=== PATIENT | female | born 1965 | race Caucasian/White ===

== ENCOUNTER 2023-02-14 17:49 | Emergency (ER) | payer SELFPAY ==
[~2023-02-14] VITALS: Ht 167.6 cm; Wt 95.0 kg
[2023-02-14] MEDS ORDERED: VOLTAREN - GENE75 MG PO (22:31)
[2023-02-14] MEDS ORDERED: TRAMADOL HCL50 MG PO (22:32)
[2023-02-14 23:25] VITALS: BP 124/77
[2023-02-14] MEDS ORDERED: BUSPAR5 M1 PO (23:30)
[2023-02-14] MEDS ORDERED: PROTONIX20 MG PO (23:30)
[2023-02-14] MEDS ORDERED: FLUOXETINE HCL10 MG PO (23:30)
== END 2023-02-14 23:25 | disposition home or self-care (01) | DRG 563 ==
LOC: ED 17:49
DX: S63.502A Unspecified sprain of left wrist, initial encounter (principal); S00.212A Abrasion of left eyelid and periocular area, initial encounter; S00.81XA Abrasion of other part of head, initial encounter; S70.02XA Contusion of left hip, initial encounter; S20.212A Contusion of left front wall of thorax, initial encounter; S50.12XA Contusion of left forearm, initial encounter; S60.212A Contusion of left wrist, initial encounter; F17.210 Nicotine dependence, cigarettes, uncomplicated; W10.9XXA Fall (on) (from) unspecified stairs and steps, initial encounter; Y92.009 Unspecified place in unspecified non-institutional (private) residence as the place of occurrence of the external cause

== ENCOUNTER 2024-09-21 20:16 | Emergency (ER) | payer OTHER ==
[~2024-09-21] VITALS: Ht 167.6 cm; Wt 80.0 kg
[~2024-09-21 20:16] MED LIST: BUSPAR5 M1 PO; FLUOXETINE HCL10 MG PO; PROTONIX20 MG PO; TRAMADOL HCL50 MG PO; VOLTAREN - GENE75 MG PO
[2024-09-21] MEDS ORDERED: KETOROLAC TROMETHAMINE 30 MG/ML SDV IV ONE (20:50)
[2024-09-21] MEDS ORDERED: NITROGLYCERIN 2% OINT UD 1 GM/PAK TD ONE (20:50)
[2024-09-21] MEDS ORDERED: Acetaminophen 300 MG/Codeine 30 MG/COMBO PO ONE (21:00)
[2024-09-21 21:16] VITALS: BP 114/55
[2024-09-21 21:17] LABS: BASO% 0.4 % (0-3); EOS% 2.7 % (0-8); HEMATOCRIT 39.1 % (37.0-47.0); HEMOGLOBIN 12.8 g/dl (12.0-16.0); IMMATURE GRANULOCYTES 0.3 % (0.0-5.0); LYMPH% 31.1 % (15-41); MEAN CELL VOLUME 87.5 fL CALC (80.0-100.0); MEAN CORPUSCULAR HGB 28.6 pG CALC (26.0-32.0); MEAN CORPUSCULAR HGB CONC 32.7 g/dL CAL (32.0-36.0); MONO% 6.9 % (2-13); NEUT# 6.12 thou/uL (2.00-7.15); NEUT% 58.6 % (42-76); RED BLOOD COUNT 4.47 mill/uL (4.20-5.60); RED CELL DISTRI WIDTH 13.1 % (11.5-15.5)
[2024-09-21 21:23] LABS: ALBUMIN 4.1 g/dL (3.2-5.0); ALKALINE PHOSPHATASE 90 u/l (38-126); ANION GAP 11 (6-22 (CALC)); BILIRUBIN, TOTAL 0.5 mg/dL (0.02-1.3); BUN 17 mg/dL (7-17); BUN/CREATININE RATIO 17 (12-20 (CALC)); CARBON DIOXIDE 25 mmol/l (22-30); CHLORIDE 109 mmol/l (95-108); ESTIMATED GFR 65 ML/MIN (>=90 (CALC)); LIPASE 93 u/l (23-300); POTASSIUM 4.4 mmol/l (3.5-5.1); SGOT/AST 31 u/l (14-36); SODIUM 141 mmol/l (137-146); TOTAL PROTEIN 6.7 g/dL (6.3-8.2)
[2024-09-21 21:34] LABS: ACT PARTIAL THROMBO TIME 20.1 SECONDS (20.0-32.5); D-DIMER 0.26 mg/L (0.19-0.60); INTERNATIONAL NORMALIZED RATIO 0.9 RATIO (0.7-1.3)
[2024-09-21 21:35] LABS: PROTHROMBIN TIME 9.6 SECONDS (9.0-12.5)
[2024-09-21 21:46] VITALS: BP 105/56
[2024-09-21] MEDS ORDERED: ACETAMINOPHEN 500 MG TAB PO ONE (22:05)
[2024-09-21 22:13] VITALS: BP 126/59
[2024-09-21 22:24] LABS: URINE BILIRUBIN - DIPSTICK Negative (NEGATIVE); URINE BLOOD DIPSTICK Negative (NEGATIVE); URINE GLUCOSE - DIPSTICK Negative (NEGATIVE); URINE KETONE Negative (NEGATIVE); URINE LEUK ESTERASE Negative (NEGATIVE); URINE NITRITE - DIPSTICK Negative (Negative); URINE PH 5.5 (4.5-8.0); URINE PROTEIN - DIPSTICK Negative (NEG-TRACE); URINE SPECIFIC GRAVITY 1.015; URINE UROBILINOGEN - DIPSTICK 0.2 E.U./dL (0.2)
[2024-09-21 22:26] LABS: URINE COLOR Yellow
[2024-09-21 22:31] VITALS: BP 113/57
[2024-09-21 23:00] VITALS: BP 118/65
[2024-09-21] MEDS ORDERED: TAM75CAP PO (23:32)
[2024-09-21] MEDS ORDERED: OSELTAMIVIR PHOSPHATE 75 MG/TAB CAP PO ONE (23:35)
[2024-09-21 23:44] VITALS: BP 118/65
== END 2024-09-21 23:44 | disposition home or self-care (01) | DRG 313 ==
LOC: ED 20:16
PROVIDERS: Family Medicine
DX: R07.89 Other chest pain (principal); J10.1 Influenza due to other identified influenza virus with other respiratory manifestations; I10 Essential (primary) hypertension; Z72.0 Tobacco use; Z86.73 Personal history of transient ischemic attack (TIA), and cerebral infarction without residual deficits; Z95.818 Presence of other cardiac implants and grafts; Z20.822 Contact with and (suspected) exposure to COVID-19

== ENCOUNTER 2024-10-16 11:15 | Observation (INO) | payer OTHER ==
[2024-10-16] VITALS (23 sets, daily range): BP systolic 106–153; BP diastolic 54–74
[~2024-10-16] VITALS: Ht 167.6 cm; Wt 100.0 kg
[~2024-10-16 11:15] MED LIST changes: +ASPIRIN 81 LOW81 MG PO; +B COMPLEX PO; +BUSPIRONE HCL7.5 MG PO; +D3 50005000 UNIT PO; +FLUOXETINE HCL40 MG PO; +LISINOPRIL10 MG PO; +PANTOPRAZOLE SO40 M3 PO; +TAM75CAP PO; +VEOZAH45 MG PO; +VISTARIL 50MG C50 M1 PO; +WELLBUTRIN150 M1 PO; +[UNRECOGNIZED DRUG - OTHER] PO
[2024-10-16] MEDS ORDERED: COZAAR25 MG PO (12:12)
[2024-10-16] MEDS ORDERED: ASPIRIN 81 MG/TAB PO ONE (12:30)
[2024-10-16 12:34] LABS: BASO% 0.4 % (0-3); HEMATOCRIT 40.5 % (37.0-47.0); HEMOGLOBIN 13.4 g/dl (12.0-16.0); IMMATURE GRANULOCYTES 0.2 % (0.0-5.0); LYMPH% 30.7 % (15-41); MEAN CELL VOLUME 87.7 fL CALC (80.0-100.0); MEAN CORPUSCULAR HGB CONC 33.1 g/dL CAL (32.0-36.0); MONO% 7.4 % (2-13); NEUT# 5.78 thou/uL (2.00-7.15); NEUT% 58.3 % (42-76); RED BLOOD COUNT 4.62 mill/uL (4.20-5.60); RED CELL DISTRI WIDTH 13.2 % (11.5-15.5)
[2024-10-16 12:37] LABS: ALBUMIN 4.4 g/dL (3.2-5.0); ALKALINE PHOSPHATASE 84 u/l (38-126); ANION GAP 12 (6-22 (CALC)); BUN 17 mg/dL (7-17); BUN/CREATININE RATIO 21 (12-20 (CALC)); CARBON DIOXIDE 25 mmol/l (22-30); CHLORIDE 107 mmol/l (95-108); CREATININE 0.8 mg/dL (0.5-1.0); ESTIMATED GFR 85 ML/MIN (>=90 (CALC)); INTERNATIONAL NORMALIZED RATIO 0.9 RATIO (0.7-1.3); LIPASE 72 u/l (23-300); POTASSIUM 4.8 mmol/l (3.5-5.1); SGOT/AST 47 u/l (14-36); SODIUM 139 mmol/l (137-146); TOTAL PROTEIN 7.3 g/dL (6.3-8.2)
[2024-10-16 12:41] LABS: BILIRUBIN, TOTAL 0.8 mg/dL (0.02-1.3)
[2024-10-16 12:48] LABS: PROTHROMBIN TIME 9.9 SECONDS (9.0-12.5)
[2024-10-16 13:08] LABS: URINE BILIRUBIN - DIPSTICK Negative (NEGATIVE); URINE BLOOD DIPSTICK Negative (NEGATIVE); URINE COLOR Yellow; URINE GLUCOSE - DIPSTICK Negative (NEGATIVE); URINE KETONE Negative (NEGATIVE); URINE LEUK ESTERASE Negative (NEGATIVE); URINE NITRITE - DIPSTICK Negative (Negative); URINE PROTEIN - DIPSTICK Negative (NEG-TRACE); URINE UROBILINOGEN - DIPSTICK 0.2 E.U./dL (0.2)
[2024-10-16] MEDS ORDERED: ACETAMINOPHEN 500 MG TAB PO ONE (14:25)
[2024-10-16] MEDS ORDERED: NITROGLYCERIN 2% OINT UD 1 GM/PAK TD ONE (15:25)
[2024-10-16] MEDS ORDERED: ACETAMINOPHEN 325 MG/TAB PO PRN (16:05)
[2024-10-16] MEDS ORDERED: MAGNESIUM HYDROXIDE 30 ML UDC PO PRN (16:05)
[2024-10-16] MEDS ORDERED: ATORVASTATIN CA20 MG PO (16:09)
[2024-10-16] MEDS ORDERED: ORPHENADRINE CITRATE 30 MG/ML AMP IV ONE (16:25)
[2024-10-16] MEDS ORDERED: HYDROmorphone HCL 2 MG/AMP IV ONE (16:25)
[2024-10-16] MEDS ORDERED: ONDANSETRON HCl 4 MG/2 ML SDV IV ONE (16:25)
[2024-10-16] MEDS ORDERED: ATORVASTATIN CALCIUM 20 MG/TAB PO SCH (21:00)
[2024-10-16] MEDS ORDERED: ENOXAPARIN SODIUM 40 MG/0.4 ML SYR SC SCH (21:00)
[2024-10-16] MEDS ORDERED: busPIRone HCL 5 MG/TAB PO SCH (21:00)
[2024-10-16] MEDS ORDERED: traMADol HCL 50 MG/TAB PO PRN (22:25)
[2024-10-17 00:06] VITALS: BP 110/50
[2024-10-17 02:17] LABS: BASO% 0.4 % (0-3); EOS% 3.8 % (0-8); HEMATOCRIT 38.4 % (37.0-47.0); HEMOGLOBIN 12.8 g/dl (12.0-16.0); IMMATURE GRANULOCYTES 0.1 % (0.0-5.0); LYMPH% 39.7 % (15-41); MEAN CELL VOLUME 88.3 fL CALC (80.0-100.0); MEAN CORPUSCULAR HGB 29.4 pG CALC (26.0-32.0); MEAN CORPUSCULAR HGB CONC 33.3 g/dL CAL (32.0-36.0); MONO% 6.9 % (2-13); NEUT# 3.7 thou/uL (2.00-7.15); NEUT% 49.1 % (42-76); RED BLOOD COUNT 4.35 mill/uL (4.20-5.60)
[2024-10-17 02:28] LABS: ALBUMIN 3.8 g/dL (3.2-5.0); BILIRUBIN, TOTAL 0.7 mg/dL (0.02-1.3); CHOLESTEROL HDL RATIO 2.3 (<4.4 (CALC)); MAGNESIUM 2.1 mg/dL (1.6-2.3); POTASSIUM 4.2 mmol/l (3.5-5.1); TOTAL PROTEIN 6.2 g/dL (6.3-8.2)
[2024-10-17 03:44] VITALS: BP 112/51
[2024-10-17 07:00] VITALS: BP 155/50
[2024-10-17] MEDS ORDERED: LOSARTAN Potassium 25 MG/TAB PO SCH (09:00)
[2024-10-17] MEDS ORDERED: PANTOPRAZOLE SODIUM Sesquihydr 40 MG/TAB PO SCH (09:00)
[2024-10-17] MEDS ORDERED: buPROPion HCL 150 MG TAB SR PO SCH (09:00)
[2024-10-17] MEDS ORDERED: FLUoxetine HCL 10 MG/CAP PO SCH (09:00)
[2024-10-17] MEDS ORDERED: ASPIRIN 81 MG/TAB PO SCH (09:00)
[2024-10-17] MEDS ORDERED: FIORICET PO (09:43)
[2024-10-17] MEDS ORDERED: LORTAB 5/3255 MG PO (09:43)
[2024-10-17] MEDS ORDERED: HYDROcodone 5 MG/Acetaminophen 325 MG/COMBO PO PRN (09:45)
[2024-10-17 10:51] VITALS: BP 103/53
== END 2024-10-17 11:02 | disposition home or self-care (01) ==
LOC: ED 11:15 → ED-I 15:06 → ED 15:17 → MS2 15:18
PROVIDERS: Nurse Practitioner; Nurse Practitioner Family; ADMIT Internal Medicine; ATTEND Internal Medicine
DX: R07.89 Other chest pain (principal); R51.9 Headache, unspecified; I10 Essential (primary) hypertension; F17.210 Nicotine dependence, cigarettes, uncomplicated; Z86.73 Personal history of transient ischemic attack (TIA), and cerebral infarction without residual deficits
CPT/HCPCS: J1171; J1650; J2360; J2405